=== PATIENT | male | born 1965 | race Caucasian/White ===

== ENCOUNTER 2018-11-06 16:50 | Emergency (ER) | payer MEDICAID ==
[~2018-11-06] VITALS: Ht 177.8 cm; Wt 84.1 kg
[~2018-11-06 16:50] MED LIST: ZESTRIL20 MG PO
[2018-11-06 16:55] VITALS: Ht 177.8 cm; Wt 84.1 kg
[2018-11-06] MEDS ORDERED: SEROQUEL300 MG PO (16:56)
[2018-11-06 17:28] LABS: BASOPHILS 0.1 % (0-2); EOSINOPHILS 0.7 % (0-7); HEMATOCRIT 33.7 % (42.0-54.0); HEMOGLOBIN 11.6 g/dL (13.5-17.5); LYMPHOCYTES 23.6 % (15-50); MCH 33.8 pg (26.0-34.0); MCHC 34.4 g/dL (31.0-37.0); MCV 98.3 fL (80.0-100.0); MEAN PLATELET VOLUME 9.5 fL (7.4-10.4); MONOCYTES 11.6 % (2-11); RBC 3.43 10x6/uL (4.20-6.10); RDW 12.8 % (11.5-14.5); WBC 7.4 10x3/uL (4.8-10.8)
[2018-11-06 17:37] LABS: INR 1.04 (0.85-1.17); PROTIME 13.1 SECONDS (11.6-15.0)
[2018-11-06 17:40] LABS: PLATELET COUNT 215 10x3/uL (130-400)
[2018-11-06 17:41] LABS: ALBUMIN 3.4 g/dL (3.4-5.0); ALKALINE PHOSPHATASE 66 U/L (46-116); ALT (SGPT) 38 U/L (10-68); BILIRUBIN - TOTAL 0.69 mg/dL (0.2-1.3); CALC OSMOLALITY 270 mosm/kg (275-300); CALCIUM 8.2 mg/dL (8.5-10.1); CARBON DIOXIDE 24.7 mmol/L (21.0-32.0); CHLORIDE - SERUM 99 mmol/L (98-107); CREATININE - SERUM 1.1 mg/dL (0.6-1.3); GLUCOSE 107 mg/dL (74-106); POTASSIUM - SERUM 3.3 mmol/L (3.5-5.1); PROTEIN - SERUM 7.1 g/dL (6.4-8.2); SODIUM 136 mmol/L (136-145); UREA NITROGEN 10 mg/dL (7-18); eGFR NON AFRICAN AMERICAN 74 mL/min (90-120)
[2018-11-06 17:53] LABS: CKMB 0.5 U/L (0.0-3.6); CREATINE KINASE 96 UL (21-232); MAGNESIUM - SERUM 1.6 mg/dL (1.8-2.4); THYROID STIMULATING HORMONE 0.83 uIU/mL (0.36-3.74); TROPONIN-I < 0.017 ng/mL (0.000-0.060)
[2018-11-06 19:00] VITALS: BP 118/73
[2018-11-06 19:49] LABS: UDS - AMPHET NEGATIVE QUAL (NEGATIVE); UDS - BARB NEGATIVE QUAL (NEGATIVE); UDS - BENZO NEGATIVE QUAL (NEGATIVE); UDS - COCAINE NEGATIVE QUAL (NEGATIVE); UDS - OPIATE NEGATIVE QUAL (NEGATIVE); UDS - PCP NEGATIVE QUAL (NEGATIVE); UDS - THC NEGATIVE QUAL (NEGATIVE)
[2018-11-06 20:00] LABS: APPEARANCE CLEAR (CLEAR); COLOR YELLOW (YELLOW)
[2018-11-06 20:01] LABS: BILIRUBIN NEGATIVE (NEGATIVE); GLUCOSE NEGATIVE (NEGATIVE); KETONE NEGATIVE (NEGATIVE); NITRITE NEGATIVE (NEGATIVE); PROTEIN NEGATIVE (NEGATIVE); UROBILINOGEN NORMAL (NORMAL)
== END 2018-11-06 21:05 | disposition home or self-care (01) ==
LOC: D.ER 16:50
PROVIDERS: Family Medicine
DX: F10.129 Alcohol abuse with intoxication, unspecified (principal); W18.30XA Fall on same level, unspecified, initial encounter; Y93.89 Activity, other specified; Y92.019 Unspecified place in single-family (private) house as the place of occurrence of the external cause

== ENCOUNTER 2019-01-03 10:55 | Inpatient (IN) | payer MEDICAID ==
[~2019-01-03] VITALS: Ht 177.8 cm; Wt 86.7 kg
--- NOTE | ~2019-01-03 | CN ---
PATIENT NAME:DEEPIKA RESTREPO MEDICAL RECORD: [id number] : 61 LOCATION:D. D.2107 ADMIT DATE: 01/03/19 ACCOUNT: [id number] CONSULTING PHYSICIAN: TARA OCHOA MD REFERRING PHYSICIAN: LYNNE POWER MD DATE OF CONSULTATION: 01/03/2019 DIAGNOSES: 1. Atrial fibrillation. 2. Elevated troponin. 3. Renal failure. 4. Anemia. 5. ETOH abuse. 6. Delirium tremens. 7. Hypertension. HISTORY OF PRESENT ILLNESS: This is a gentleman, who has a past history of ETOH abuse, who was in [facility] for the past week; however, he has been on a binge. He has a history from a cardiac standpoint of atrial fibrillation. His heart rates in the 120s. EKG is pending. Most likely, he is back in atrial fibrillation. He does have a history of hypertension for which he is on lisinopril. He underwent cardiac catheterization at [facility] within the past year. There were no significant blockages. He has had no chest pain or chest discomfort. His troponin is mildly elevated; however, his creatinine is 3.0. He is receiving IV fluids. PHYSICAL EXAMINATION: GENERAL APPEARANCE: Well-nourished, well-developed, appears stated age. Level of distress, comfortable. PSYCHIATRIC: Mental status, alert, normal affect. Orientation, oriented to time, place and person. EYES: Lids and conjunctiva, noninjected. No discharge, no pallor. ENT: Lips, teeth, gums, normal dentition. Oropharynx, no cyanosis, no pallor. NECK: Carotid arteries, bilateral normal upstroke, no bruits, no thrills. JUGULAR VEINS: No jugular venous pressure or distention. CERVICAL LYMPH NODES: Nontender, nonenlarged. THYROID: Not enlarged. Nontender. No nodules. LUNGS: Respiratory effort, unlabored. CHEST: Normal curvature. No thoracic deformity. No chest wall tenderness. Percussion, resonant. Auscultation, clear. No wheezes, no rales, no rhonchi. CARDIOVASCULAR: Precordial exam, nondisplaced. No heaves or pericardial thrills. Rate and rhythm, regular. Heart sounds, normal S1, normal S2. No S3, no gallop, no rub. Systolic murmur, not heard. Diastolic murmur, not heard. EXTREMITIES: No cyanosis, no edema. Peripheral pulses, full and equal in all extremities, except as noted. No bruits appreciated. ABDOMEN: Soft, nondistended. Normal aorta. No bruit. Nontender. No masses. Liver, nontender, no hepatomegaly. Spleen, nontender, no splenomegaly. MUSCULOSKELETAL: No joint tenderness. No joint swelling. No erythema. NEUROLOGICAL: Normal gait, normal strength, normal tone. SKIN: Warm and dry. OVERALL IMPRESSION: 1. Atrial fibrillation. At this time, we will start with Lopressor. This will help his DTs as well to get heart rate control. We will treat his heart rate and blood pressure with beta-blockers as tolerated. CONSULT REPORT [id number] DEEPIKA RESTREPO 2. Elevated troponin, non-Q-wave myocardial infarction. This is secondary to demand ischemia. Normal cardiac catheterization in the past year. No further workup needs to be done from the standpoint of ischemic heart disease. We will get an echocardiogram to rule out ETOH cardiomyopathy and to evaluate chamber sizes in light of the arrhythmia. TRANSINT:[id number] Voice Confirmation ID: [id number] DOCUMENT ID: [id number] TARA OCHOA MD CC: [id number] DICTATION DATE: 01/03/191939 SILVER PLATER: 01/04/19 0015 ADM IN [facility] [address] [id number]
--- NOTE | ~2019-01-03 | EC ---
PATIENT:DEEPIKA RESTREPO DATE OF SERVICE: 01/03/19 SEX: M MEDICAL RECORD: [id number] DATE OF : 61 LOCATION:D.M2 D.210 AGE OF PATIENT: 53 ADMISSION DATE: 01/03/19 REFERRING PHYSICIAN: INTERPRETING PHYSICIAN: TARA FRANCIS MD ECHOCARDIOGRAM REPORT ECHO CHARGES 4 ECHO COMPLETE Date: 01/04/19 CLINICAL DIAGNOSIS: SYNCOPE HX HTN, AFIB ECHOCARDIOGRAPHIC MEASUREMENTS (adult normal given) AC root (d.<3.7cm) 3.2 cm LV Septum d (<1.2 cm> 2.0 cm Valve Excursion 1.5 cm LV Septum (systole) 2.3 cm Left Atria (s.<4.0cm> 3.7 cm LVPW d(<1.2cm) 1.8 cm RV (d.<2.3cm) 3.4 cm LVPW (sytole) 2.2 cm LV diastole(<5.6CM) 4.2 cm MV E-F(>70mm/sec) cm LV systole 2.3 cm LVOT Diameter 1.9 cm MV exc.(>10mm) 1.6 cm Est.ejection fraction (50-75%) % DOPPLER: LVIT cm/sec A 100 cm/sec E 58.0 cm/sec LA cm/sec RVSP 28 mmHg LVOT 159 cm/sec AOP1/2T m/s Asc. Ao 218 cm/sec RVOT 118 cm/sec RA cm/sec PA 181 cm/sec AV Gradient Peak 19.03mmHg AV Mean 11.34mmHg AV Area 2.2 cm MV Gradient Peak 7.17 mmHg MV Mean 3.43 mmHg MV Area cm COMMENTS: English As A Second Language Teacher: Heaven SHELTON Patcher Wood Welder: 1 Dr. Francis TAPE# PACS Pericardial Effusion Y DATE OF SERVICE: 01/04/2019 PROCEDURE: Echocardiogram. FINDINGS: 1. Left ventricular chamber size is within normal limits. Left ventricular systolic function is normal. Overall ejection fraction estimated at 60%. 2. Left atrium, right atrium, and right ventricular chamber sizes are within normal limits. 3. Valvular structures: Aortic valve demonstrates mild calcific aortic ECHOCARDIOGRAM REPORT [id number] DEEPIKA RESTREPO stenosis, valve area calculates to greater than 2 cm squared, but there is gradient 19 mm across the valve. The remaining valvular structures have normal structure and motion. 4. Doppler interrogation reveals mild mitral regurgitation, mild tricuspid regurgitation, no other valvular insufficiency or stenosis. Pulmonary systolic pressure is estimated at 28 mmHg. 5. Trace pericardial effusion is present. This is not hemodynamically significant. No evidence of left ventricular thrombus. TRANSINT:[id number] Voice Confirmation ID: [id number] DOCUMENT ID: [id number] TARA FRANCIS MD CC: [id number] DICTATION DATE: 01/04/19 1244 TAVERN CAR ATTENDANT: 01/04/19 1414 ADM IN [place] [address] [place] [address]
[~2019-01-03 10:55] MED LIST changes: +SEROQUEL300 MG PO
[2019-01-03 11:45] LABS: APPEARANCE CLEAR (CLEAR); BILIRUBIN NEGATIVE (NEGATIVE); COLOR YELLOW (YELLOW); GLUCOSE NEGATIVE (NEGATIVE); KETONE NEGATIVE (NEGATIVE); NITRITE NEGATIVE (NEGATIVE); PROTEIN NEGATIVE (NEGATIVE); SPECIFIC GRAVITY 1.015 (1.005-1.020); UROBILINOGEN NORMAL (NORMAL)
[2019-01-03 11:50] LABS: UDS - AMPHET NEGATIVE QUAL (NEGATIVE); UDS - BARB NEGATIVE QUAL (NEGATIVE); UDS - BENZO POSITIVE QUAL (NEGATIVE); UDS - COCAINE NEGATIVE QUAL (NEGATIVE); UDS - OPIATE NEGATIVE QUAL (NEGATIVE); UDS - PCP NEGATIVE QUAL (NEGATIVE); UDS - THC NEGATIVE QUAL (NEGATIVE)
[2019-01-03 12:55] LABS: BILIRUBIN - TOTAL 0.6 mg/dL (0.2-1.3); CALCIUM 8.8 mg/dL (8.5-10.1); CARBON DIOXIDE 25.5 mmol/L (21.0-32.0); CREATININE - SERUM 3.2 mg/dL (0.6-1.3); POTASSIUM - SERUM 3.5 mmol/L (3.5-5.1); PROTEIN - SERUM 8.6 g/dL (6.4-8.2)
[2019-01-03 12:57] LABS: HEMATOCRIT 35.4 % (42.0-54.0); HEMOGLOBIN 12.1 g/dL (13.5-17.5); LYMPHOCYTES 9.5 % (15-50); MCH 31.3 pg (26.0-34.0); MCHC 34.2 g/dL (31.0-37.0); MCV 91.5 fL (80.0-100.0); MEAN PLATELET VOLUME 9.1 fL (7.4-10.4); NEUTROPHILS 86.1 % (40-80); RBC 3.87 10x6/uL (4.20-6.10); RDW 16.2 % (11.5-14.5); WBC 13.2 10x3/uL (4.8-10.8)
[2019-01-03 13:04] LABS: PLATELET COUNT 311 10x3/uL (130-400)
[2019-01-03 13:18] LABS: TROPONIN-I 0.335 ng/mL (0.000-0.060)
--- NOTE | 2019-01-03 17:54 | NUR ---
NEW PATIENT ADMIT TO FLOOR FROM ER ADMITTED TO DR POWER FOR ARF AND ELEVATED TROPONIN. BP 129/82 HR 120 T 98.9 R 18 AND O2 98% RA. IV 20G TO LEFT AC WITH BANANA BAG INFUSING AT 125ML/HR AND NS 125 ML/HR. PATIENT DENIES ANY NEEDS OR PAIN. PATIENT ORIENTED TO ROOM AND CALL LIGHT . WILL CONTINUE WITH PLAN OF CARE.
[2019-01-03 17:59] VITALS: BP 129/82; BMI 26.6
--- NOTE | 2019-01-03 18:44 | MORECARE ---
CASE MANAGEMENT DISCHARGE SUMMARY PATIENT: DEEPIKA BAR UNIT: [id number] ADM DATE: 01/03/19 AGE: 53 : 61 SEX: M ROOM/BED: D.2107 AUTHOR: JACK KEEN PHYSICIAN: REFERRING PHYSICIAN: LYNNE POWER MD DATE OF SERVICE: 01/03/19 Discharge Plan Patient Name: DEEPIKA BAR [facility] [facility] 1965 Planned Disposition: Home Anticipated Discharge Date: 01/06/19 Discharge Date: Expected LOS: 3 Initial Reviewer: [email or web address] Initial Review Date: 01/03/2019 Generated: 01/03/19 7:44 pm DCPIA - Discharge Planning Initial Assessment Updated by [email or web address]: Aurelia Olivera on 01/03/19 6:43 pm * Is the patient Alert and Oriented? Yes * PCP Dr. Power * Pharmacy [facility] on [address] * Preadmission Environment Home with Family * ADLs Independent * Equipment None * List name and contact numbers for known caregivers / representatives who currently or will assist patient after discharge: Tiburcio Bar - [facility] [phone] & [phone] * Community resources currently utilized None * Additional services required to return to the preadmission environment? No * Can the patient safely return to the preadmission environment? Yes * Has this patient been hospitalized within the prior 30 days at any hospital? No Patient Name: DEEPIKA BAR Page 53236 at 1844 All edits/amendments must be made on the electronic document DICTATION DATE: 01/03/191842 HANDICAPPED TEACHER: DENG 01/03/191842 RPT#: [id number] DC DATE: STATUS: ADM IN [facility] [address] [place] [address] END OF REPORT
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
[2019-01-03 20:00] VITALS: BP 111/55
[2019-01-03 20:16] LABS: ERYTHROCYTE SEDIMENTATION RATE 92 mm/hr (0-20)
--- NOTE | 2019-01-03 20:23 | NUR ---
RESUMING CARE. PT ALERT LAYING IN BED WATCHING TV. NO ACUTE S/S OF DISTRESS NOTED. NO C/O VOICED AT THIS TIME. BED IN LOW POSITIOM WITH CALL LIGHT IN REACH. SIDE RAILS UP X 2. WILL CONTINUE TO MONITOR PT AND [facility] PLAN OF CARE.
[2019-01-04] VITALS: BP 132/82
--- NOTE | 2019-01-04 02:48 | NUR ---
I have reviewed this patient and I concur with the Shift Assessment completed by the Licensed Practical Nurse today this shift.
[2019-01-04 04:00] VITALS: BP 150/90
[2019-01-04 05:32] LABS: BASOPHILS 0 % (0-2); EOSINOPHILS 0.3 % (0-7); HEMATOCRIT 31.3 % (42.0-54.0); HEMOGLOBIN 10.3 g/dL (13.5-17.5); IMMATURE GRANULOCYTES 0.2 % (0-5); MCH 30.8 pg (26.0-34.0); MCHC 32.9 g/dL (31.0-37.0); MEAN PLATELET VOLUME 9.7 fL (7.4-10.4); MONOCYTES 9.5 % (2-11); PLATELET COUNT 276 10x3/uL (130-400); RBC 3.34 10x6/uL (4.20-6.10); RDW 16.3 % (11.5-14.5); WBC 10.1 10x3/uL (4.8-10.8)
[2019-01-04 05:44] LABS: MCV 93.7 fL (80.0-100.0)
[2019-01-04 05:49] LABS: ANION GAP 15.4 mmol/L (8-16); POTASSIUM - SERUM 3.4 mmol/L (3.5-5.1)
[2019-01-04 05:50] LABS: CREATININE - SERUM 2.3 mg/dL (0.6-1.3)
[2019-01-04 08:50] VITALS: BP 129/77
--- NOTE | 2019-01-04 09:13 | NUR ---
RESUMING PT CARE, PT LAYING IN BED ALERT AND ORIENTED X3, RESPIRATIONS EVEN AND UNLABORED. CALL LIGHT IN REACH, WILL CONTINUE TO MONITOR AND FOLLOW PLAN OF CARE.
--- NOTE | 2019-01-04 09:22 | NUR ---
PT C/O OF PAIN AT A LEVEL 9 ON PAIN SCALE IN LEGS, ELBOWS AND FEET FROM A DX OF GOUT. I PAGED DR POWER TO SEE IF I CAN GET AN ORDER FOR PAIN MED. WILL F/U WITH ANY NEW ORDERS.
--- NOTE | 2019-01-04 10:06 | NUR ---
I have reviewed this patient and I concur with the Shift Assessment completed by the Licensed Practical Nurse today this shift.
--- NOTE | 2019-01-04 10:55 | NUR ---
URINE COLLECTED AND SENT TO THE LAB ORDERED.
[2019-01-04 11:16] LABS: APPEARANCE CLEAR (CLEAR); BILIRUBIN NEGATIVE (NEGATIVE); COLOR YELLOW (YELLOW); GLUCOSE NEGATIVE (NEGATIVE); KETONE NEGATIVE (NEGATIVE); NITRITE NEGATIVE (NEGATIVE); PROTEIN NEGATIVE (NEGATIVE); UROBILINOGEN NORMAL (NORMAL)
[2019-01-04 11:18] LABS: CREATININE - URINE 27.8 mg/dL (30-125); PRO/CRE RATIO URINE 1.1 mg/g; PROTEIN - URINE 30.6 mg/dL (0.0-11.9)
[2019-01-04 12:25] VITALS: Ht 177.8 cm; Wt 86.7 kg
[2019-01-04 14:47] VITALS: BP 124/78
--- NOTE | 2019-01-04 15:59 | NUR ---
PT IS LAYING IN BED WITH EYES CLOSED, RESPIRATIONS EVEN AND UNLABORED. CALL LIGHT IN REACH, WILL CONTINUE TO MONITOR AND FOLLOW PLAN OF CARE.
[2019-01-04 18:45] VITALS: BP 90/54
--- NOTE | 2019-01-04 19:10 | NUR ---
GREETED PATIENT AND INTRODUCED MYSELF HIS NURSE FOR THE EVENING. PATIENT IS LAYING IN BED WATCHING TV AND DENIES ANY NEEDS AT THIS TIME. CALL LIGHT IN REACH.
[2019-01-04 20:00] VITALS: BP 138/90
[2019-01-05] VITALS: BP 135/91
--- NOTE | 2019-01-05 00:01 | NUR ---
PATIENT AWAKE AND REQUESTING PRN ATIVAN FOR ANXIETY. ADMINISTERED 0.5 ML OF ATIVAN. PATIENT DENIES ANY FURTHER NEEDS AT THIS TIME. CALL LIGHT IN REACH.
--- NOTE | 2019-01-05 02:10 | NUR ---
PATIENT ASLEEP LAYING IN SUPINE POSITION. HOB AT 30 DEGREES. RESPIRATIONS EVEN. NO SIGNS OF DISTRESS. CALL LIGHT IN REACH.
[2019-01-05 05:08] VITALS: BP 135/95
--- NOTE | 2019-01-05 06:02 | NUR ---
PATIENT ASLEEP LAYING IN SUPINE POSITION. HOB AT 35 DEGREES. RESPIRATIONS EVEN. NO S/S OF DISTRESS. CALL LIGHT IN REACH.
--- NOTE | 2019-01-05 08:00 | NUR ---
RESUMING PT CARE, PT SITTING UP IN BED, ALERT AND ORIENTED X3. CALL LIGHT IN REACH, WILL CONTINUE TO MONITOR AND FOLLOW PLAN OF CARE.
[2019-01-05 08:33] LABS: BASOPHILS 0.1 % (0-2); EOSINOPHILS 2.8 % (0-7); HEMATOCRIT 31.2 % (42.0-54.0); IMMATURE GRANULOCYTES 0.1 % (0-5); LYMPHOCYTES 28.8 % (15-50); MCH 30.8 pg (26.0-34.0); MCHC 32.1 g/dL (31.0-37.0); MEAN PLATELET VOLUME 9.5 fL (7.4-10.4); MONOCYTES 12.5 % (2-11); NEUTROPHILS 55.7 % (40-80); PLATELET COUNT 252 10x3/uL (130-400); RBC 3.25 10x6/uL (4.20-6.10); RDW 15.8 % (11.5-14.5)
[2019-01-05 08:47] LABS: WBC 6.9 10x3/uL (4.8-10.8)
[2019-01-05 08:51] LABS: ALBUMIN 2.4 g/dL (3.4-5.0); BILIRUBIN - TOTAL 0.32 mg/dL (0.2-1.3); CALCIUM 8.2 mg/dL (8.5-10.1); CARBON DIOXIDE 21.4 mmol/L (21.0-32.0); CREATININE - SERUM 1.3 mg/dL (0.6-1.3); POTASSIUM - SERUM 3.4 mmol/L (3.5-5.1); PROTEIN - SERUM 6.6 g/dL (6.4-8.2)
[2019-01-05 09:04] VITALS: BP 151/97
--- NOTE | 2019-01-05 09:37 | NUR ---
I have reviewed this patient and I concur with the Shift Assessment completed by the Licensed Practical Nurse today this shift.
[2019-01-05 11:11] VITALS: BP 140/92
--- NOTE | 2019-01-05 15:33 | NUR ---
IV INFILTRATED AND REMOVED FROM LEFT AC, NEW IV STARTED TO RIGHT AC.
--- NOTE | 2019-01-05 15:55 | NUR ---
PT C/O INCREASED WEAKNESS, HE TRIED TO STAND UP BUT COULD NOT ON HIS OWN. I PAGED DR POWER, NEW ORDERS TO CONSULT PT AND ADMIT TO REHAB. ORDER NOTED.
[2019-01-05 16:42] VITALS: BP 174/87
--- NOTE | 2019-01-05 19:21 | NUR ---
RECEIVED REPORT, WILL ASSUME CARE OF PT, VISITING WITH FAMILY, DENIES ANY NEEDS AT THIS TIME, BED IS LOW, SRX2, CALL LIGHT IN REACH, WILL CONTINUE PLAN OF CARE
[2019-01-05 20:04] VITALS: BP 171/96
--- NOTE | 2019-01-05 23:37 | NUR ---
SLEEPING, BED IS LOW, SRX2, CALL LIGHT IN REACH, WILL CONTINUE PLAN OF CARE
[2019-01-06 00:36] VITALS: BP 194/103
--- NOTE | 2019-01-06 04:01 | NUR ---
I have reviewed this patient and I concur with the Shift Assessment completed by the Licensed Practical Nurse today this shift.
[2019-01-06 04:35] VITALS: BP 145/80
[2019-01-06 07:00] VITALS: BP 152/87
--- NOTE | 2019-01-06 08:00 | NUR ---
RECIEVED BEDSIDE REPORT. AM ROUNDS COMPLETED VSS, AAOX3. NO S/S OF RR DISTRESS. PT STATES HE IS WEAK. AM MEDS GIVEN. PT DENIES ANY NEEDS FOR PAIN AT THIS TIME. WILL CPOC. CL IN REACH, BED IN LOW, SR UP X2.
--- NOTE | 2019-01-06 10:31 | NUR ---
PT C/O GENERALIZED PAIN. PO NORCO GIVEN AT THIS TIME. PT IN PT'S ROOM. WILLM CTM. CL IN REACH, BED IN LOW, SR UP X2.
[2019-01-06 12:44] VITALS: BP 150/97
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
[2019-01-06 17:09] LABS: SPE - A/G RATIO 0.8 (0.7-1.7); SPE - ALBUMIN 2.8 g/dL (2.9-4.4); SPE - ALPHA-1 GLOBULIN 0.5 g/dL (0.0-0.4); SPE - ALPHA-2 GLOBULIN 1.1 g/dL (0.4-1.0); SPE - BETA GLOBULIN 0.8 g/dL (0.7-1.3); SPE - GAMMA GLOBULIN 1.3 g/dL (0.4-1.8); SPE - M-SPIKE Not Observed g/dL (Not Observed); SPE - TOTAL PROTEIN 6.5 g/dL (6.0-8.5)
[2019-01-06 17:52] VITALS: BP 156/95
--- NOTE | 2019-01-06 19:00 | NUR ---
AWAKE TALKING ON HIS PHONE. RR 18 EVEN U/L ON ROOM AIR. TELEMETRY SHOWS 102 ST. IV IN L HAND INTACT WITH BANANA BAG INFUSING AT 125ML/HR. C/O KNEE AND ELBOW JOINT PAIN LEVEL 8/10 NUMBER SCALE, STATED IS FROM GOUT. REQUESTED PAIN MED WITH MED PASS.
[2019-01-06 20:31] VITALS: BP 169/77
--- NOTE | 2019-01-06 20:35 | NUR ---
ADMIN SCHED MEDS AND NORCO 10 FOR C/O CHRONIC KNEE/ELBOW PAIN. ADMIN ATIVAN 1MG IV PER REQUEST FOR "ANXIETY". NO OTHER NEEDS VOICED.
[2019-01-07 05:05] VITALS: BP 153/74
--- NOTE | 2019-01-07 05:35 | NUR ---
ADMIN NORCO 10 MG PO PER REQUEST FOR C/O BILATERAL KNEE/ELBOW PAIN LEVEL 8/10 SCALE. TOOK URINE SAMPLE TO LAB PER ORDER.
[2019-01-07 06:00] LABS: BASOPHILS 0.2 % (0-2); EOSINOPHILS 7.5 % (0-7); HEMATOCRIT 29.8 % (42.0-54.0); HEMOGLOBIN 9.7 g/dL (13.5-17.5); IMMATURE GRANULOCYTES 0.2 % (0-5); MCH 30.4 pg (26.0-34.0); MCHC 32.6 g/dL (31.0-37.0); MEAN PLATELET VOLUME 9.4 fL (7.4-10.4); MONOCYTES 14.4 % (2-11); NEUTROPHILS 28.7 % (40-80); PLATELET COUNT 294 10x3/uL (130-400); RBC 3.19 10x6/uL (4.20-6.10); RDW 15.1 % (11.5-14.5)
[2019-01-07 06:27] LABS: MCV 93.4 fL (80.0-100.0); WBC 4.8 10x3/uL (4.8-10.8)
[2019-01-07 06:30] LABS: CALCIUM 8.5 mg/dL (8.5-10.1); CARBON DIOXIDE 25.3 mmol/L (21.0-32.0); CHLORIDE - SERUM 107 mmol/L (98-107); GLUCOSE 89 mg/dL (74-106); POTASSIUM - SERUM 3.2 mmol/L (3.5-5.1); SODIUM 142 mmol/L (136-145)
[2019-01-07 06:40] LABS: CALC OSMOLALITY 279 mosm/kg (275-300); CREATININE - SERUM 0.9 mg/dL (0.6-1.3); UREA NITROGEN 7 mg/dL (7-18)
[2019-01-07 06:41] LABS: eGFR NON AFRICAN AMERICAN > 90 mL/min (90-120)
--- NOTE | 2019-01-07 07:10 | NUR ---
REPORT RECEIVED FROM TERRITORY BUSINESS MANAGER. PATIENT LAYING IN BED ON BACK WITH EYES CLOSED AND BREATHING EVENLY. VSS. WILL CONTINUE WITH PLAN OF CARE. SR UP X 2 BED IN LOW POSITION AND CALL LIGHT IN REACH.
[2019-01-07 08:20] LABS: APPEARANCE CLEAR (CLEAR); BILIRUBIN NEGATIVE (NEGATIVE); COLOR YELLOW (YELLOW); GLUCOSE NEGATIVE (NEGATIVE); KETONE NEGATIVE (NEGATIVE); NITRITE NEGATIVE (NEGATIVE); PROTEIN NEGATIVE (NEGATIVE); UROBILINOGEN NORMAL (NORMAL)
[2019-01-07 08:23] LABS: BACTERIA FEW /hpf (NONE SEEN); EPITHELIAL CELLS 0-5 /hpf (0-5); RED CELLS - URINE 0-5 /hpf (0-5); WHITE CELLS - URINE 0-5 /hpf (0-5)
[2019-01-07 09:17] VITALS: BP 153/94
[2019-01-07 12:27] VITALS: BP 174/90
--- NOTE | 2019-01-07 14:37 | NUR ---
PATIENT RESTING COMFORTABLY IN ROOM. VSS. WILL CONTINUE TO MONITOR.
[2019-01-07 16:21] VITALS: BP 169/97
--- NOTE | 2019-01-07 16:46 | NUR ---
IV INFILLTRATED. BP 174/97. PER VERBAL ORDER GENOVEVA SANTIZO WITH DR TONO DC IV AND ADDED COZAAR 50 MG PO. PATIENT COMPLAINS OF HEADACHE. NEW ORDER RECIEVED FROM GENOVEVA SANTIZO GIVE TYLENOL 1000 MG PO . WILL CONTINUE TO MONITOR PATIENT.
--- NOTE | 2019-01-07 19:20 | NUR ---
RESUMING CARE. PT LAYING IN BED A&O BREATH SOUNDS EVEN UNLABORED ON RA , NO IV, PT IS UP WITH ASSIST NO C/O PAIN OT DISTRESS AT THIS TIME CL IN REACH WILL CONT TO MONITOR
[2019-01-07 20:00] VITALS: BP 153/93
[2019-01-08] VITALS: BP 144/93
--- NOTE | 2019-01-08 02:18 | NUR ---
I have reviewed this patient and I concur with the Shift Assessment completed by the Licensed Practical Nurse today this shift. PT IS SR 75 ON THE MONITOR
[2019-01-08 04:00] VITALS: BP 155/85
--- NOTE | 2019-01-08 07:10 | NUR ---
REPORT RECEIVED FROM NEON SIGN SERVICER. PATIENT LAYING IN BED ON BACK WITH EYES CLOSED AND BREATHING EVENLY. VSS. WILL CONTINUE WITH PLAN OF CARE. SR UP X 2 BED IN LOW POSITION AND CALL LIGHT IN REACH.
--- NOTE | 2019-01-08 07:59 | NUR ---
PATIENT COMPLAINS OF PAIN TO JOINTS. MEDICATED PER MAR WITH NORCO. WILL CONTINUE TO MONITOR. SR UP X 2 BED IN LOW POSITION AND CALL LIGHT IN REACH.
[2019-01-08] MEDS ORDERED: LIBRIUM25 MG PO (08:19)
[2019-01-08] MEDS ORDERED: ZYLOPRIM100 MG PO (08:20)
[2019-01-08] MEDS ORDERED: K-DUR20 MEQ PO (08:20)
[2019-01-08 09:23] VITALS: BP 174/104
[2019-01-08] MEDS ORDERED: COZAAR50 MG PO (10:14)
--- NOTE | 2019-01-08 11:29 | NUR ---
Rehab Note- Acute Inpatient Rehab prescreen order received. The patient has Medicaid & does not have inpatient acute rehab benefits. Thank you for this referral! Jamilah Esteban RN Clinical Liaison, [facility] Rehab
--- NOTE | 2019-01-08 12:54 | NUR ---
ORDERS RECEIVED FOR DISCHARGE. PATIENT IS STABLE AND VSS. PATIENT DENIES ANY NEEDS OR PAIN. ORAL AND WRITTEN DC INSTRUCTIONS GIVEN . PATIENT VERBALIZED UNDERSTANDING AND SIGNED WRITTEN INSTRUCTIONS . PATIENT IS DC HOME FOR SELF CARE. PATIENT REFUSES WC AND WALKED TO FRONT DOOR WITH SON TO DRIVE PATIENT HOME.
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
== END 2019-01-08 12:58 | disposition home or self-care (01) | DRG 682 ==
LOC: D.ER 10:55 → D.M2 15:12 → D.EDHOLD 15:12 → D.M2 16:27
PROVIDERS: Family Medicine; Internal Medicine Nephrology; ADMIT Legal Medicine; ATTEND Legal Medicine
DX: N17.9 Acute kidney failure, unspecified (principal); I21.4 Non-ST elevation (NSTEMI) myocardial infarction; F10.231 Alcohol dependence with withdrawal delirium; I24.8 Other forms of acute ischemic heart disease; E87.1 Hypo-osmolality and hyponatremia; F33.9 Major depressive disorder, recurrent, unspecified; R79.89 Other specified abnormal findings of blood chemistry; I10 Essential (primary) hypertension; M10.9 Gout, unspecified; W19.XXXA Unspecified fall, initial encounter; F19.90 Other psychoactive substance use, unspecified, uncomplicated; D64.9 Anemia, unspecified

== ENCOUNTER 2019-01-29 20:23 | Emergency (ER) | payer MEDICAID ==
[~2019-01-29] VITALS: Ht 177.8 cm; Wt 72.7 kg
[~2019-01-29 20:23] MED LIST changes: +COZAAR50 MG PO; +K-DUR20 MEQ PO; +LIBRIUM25 MG PO; +ZYLOPRIM100 MG PO
[2019-01-29 20:28] VITALS: BP 101/64; Ht 177.8 cm; Wt 72.7 kg
[2019-01-29] MEDS ORDERED: LISINOPRIL10 MG PO (20:30)
== END 2019-01-29 23:39 | disposition left against medical advice (07) ==
LOC: D.ER 20:23
DX: R07.9 Chest pain, unspecified (principal); R10.9 Unspecified abdominal pain; I10 Essential (primary) hypertension

== ENCOUNTER 2019-01-31 03:09 | Inpatient (IN) | payer MEDICAID ==
[2019-01-31] VITALS (7 sets, daily range): BP systolic 146–162; BP diastolic 68–94; BMI 24.4; BMI 24.3
[~2019-01-31 03:09] MED LIST changes: +LISINOPRIL10 MG PO
[2019-01-31 04:49] LABS: ALBUMIN 3.2 g/dL (3.4-5.0); ANION GAP 19.5 mmol/L (8-16); BILIRUBIN - TOTAL 0.61 mg/dL (0.2-1.3); CALCIUM 8.3 mg/dL (8.5-10.1); CARBON DIOXIDE 18.1 mmol/L (21.0-32.0); CREATININE - SERUM 2.1 mg/dL (0.6-1.3); POTASSIUM - SERUM 4.6 mmol/L (3.5-5.1); PROTEIN - SERUM 7.6 g/dL (6.4-8.2); PROTIME 12.7 SECONDS (11.6-15.0)
[2019-01-31 04:57] LABS: MAGNESIUM - SERUM 1.3 mg/dL (1.8-2.4)
[2019-01-31 05:04] LABS: BASOPHILS 0.2 % (0-2); EOSINOPHILS 1.4 % (0-7); HEMATOCRIT 39.2 % (42.0-54.0); HEMOGLOBIN 13.5 g/dL (13.5-17.5); IMMATURE GRANULOCYTES 0.2 % (0-5); LYMPHOCYTES 36.4 % (15-50); MCH 31.8 pg (26.0-34.0); MCHC 34.4 g/dL (31.0-37.0); MCV 92.5 fL (80.0-100.0); MEAN PLATELET VOLUME 9.6 fL (7.4-10.4); MONOCYTES 11.2 % (2-11); NEUTROPHILS 50.6 % (40-80); PLATELET COUNT 194 10x3/uL (130-400); RBC 4.24 10x6/uL (4.20-6.10); RDW 17.2 % (11.5-14.5); WBC 5.9 10x3/uL (4.8-10.8)
[2019-01-31 05:14] LABS: APPEARANCE CLEAR (CLEAR); BILIRUBIN NEGATIVE (NEGATIVE); COLOR YELLOW (YELLOW); GLUCOSE NEGATIVE (NEGATIVE); KETONE NEGATIVE (NEGATIVE); NITRITE NEGATIVE (NEGATIVE); PROTEIN NEGATIVE (NEGATIVE); SPECIFIC GRAVITY 1.015 (1.005-1.020); UROBILINOGEN NORMAL (NORMAL)
[2019-01-31] MEDS ORDERED: HYDROCODONE-IB1 EAC3 PO (05:26)
[2019-01-31] MEDS ORDERED: ZANAFLEX4 MG PO (05:26)
--- NOTE | 2019-01-31 06:39 | NUR ---
REPORT CALLED TO CHANDRAKANT, FLOOR NURSE. WILL ADMIT PT WHEN BHARANY RETURNS CALL. PT STABLE, CALL LIGHT WITHIN REACH, WILL CONTINUE TO MONITOR.
--- NOTE | 2019-01-31 07:05 | NUR ---
PT RECEIVED TO ROOM WITHOUT ANY COMPLAINTS AT THIS TIME. IVF INFUSING AT PRESCRIBED RATE TO LT. HAND. ENCOURAGED TO USE CALL LIGHT FOR ASSIST.
[2019-01-31 16:15] LABS: UDS - AMPHET NEGATIVE QUAL (NEGATIVE); UDS - BARB NEGATIVE QUAL (NEGATIVE); UDS - BENZO POSITIVE QUAL (NEGATIVE); UDS - COCAINE NEGATIVE QUAL (NEGATIVE); UDS - OPIATE POSITIVE QUAL (NEGATIVE); UDS - PCP NEGATIVE QUAL (NEGATIVE); UDS - THC NEGATIVE QUAL (NEGATIVE)
--- NOTE | 2019-01-31 16:28 | NUR ---
PT REFUSES TO WEAR SCD WITH RISK VERSUS BENEFITS EXPLAINED.
[2019-02-01] VITALS: BP 139/84
--- NOTE | 2019-02-01 03:26 | NUR ---
ACCIDENTALLY PULLED IV OUT, REFUSED TO HAVE A NEW ON PLACED RIGHT NOW
[2019-02-01 04:00] VITALS: BP 101/61
--- NOTE | 2019-02-01 04:00 | NUR ---
I have reviewed this patient and I concur with the Shift Assessment completed by the Licensed Practical Nurse today this shift.
[2019-02-01 05:47] LABS: BASOPHILS 0 % (0-2); EOSINOPHILS 2.1 % (0-7); HEMATOCRIT 34.9 % (42.0-54.0); HEMOGLOBIN 11.4 g/dL (13.5-17.5); MCH 31.1 pg (26.0-34.0); MCHC 32.7 g/dL (31.0-37.0); MEAN PLATELET VOLUME 9.5 fL (7.4-10.4); MONOCYTES 13.2 % (2-11); NEUTROPHILS 51.7 % (40-80); PLATELET COUNT 166 10x3/uL (130-400); RBC 3.66 10x6/uL (4.20-6.10); RDW 17.8 % (11.5-14.5); WBC 5.3 10x3/uL (4.8-10.8)
[2019-02-01 05:55] LABS: MCV 95.4 fL (80.0-100.0)
[2019-02-01 06:27] LABS: ALBUMIN 2.6 g/dL (3.4-5.0); ANION GAP 14.6 mmol/L (8-16); BILIRUBIN - TOTAL 1.07 mg/dL (0.2-1.3); CARBON DIOXIDE 22.6 mmol/L (21.0-32.0); POTASSIUM - SERUM 4.2 mmol/L (3.5-5.1); PROTEIN - SERUM 6.1 g/dL (6.4-8.2)
[2019-02-01 06:29] LABS: CREATININE - SERUM 1.3 mg/dL (0.6-1.3)
[2019-02-01 08:45] VITALS: BP 91/57
--- NOTE | 2019-02-01 09:52 | NUR ---
ALERT AND ORIENTED AND DENIES ANY PAIN OR DISCOMFORT AT THIS TIME. ABD. SOFT WITH BS NOTED. LUNGS CTA. PT REFUSES TO REPLACE IV AT THIS TIME. STATEDIS STILL FOGGY FROM SEROQUEL LAST NIGHT.ENCOURAGED TO USE CALL LIGHT FOR ASSIST
[2019-02-01 12:58] VITALS: BP 107/68
[2019-02-01 17:42] VITALS: BP 110/71
[2019-02-01 19:53] VITALS: BP 120/77
[2019-02-02] VITALS: BP 130/85
--- NOTE | 2019-02-02 03:13 | NUR ---
I have reviewed this patient and I concur with the Shift Assessment completed by the Licensed Practical Nurse today this shift.
[2019-02-02 04:00] VITALS: BP 129/84
[2019-02-02 06:36] LABS: BASOPHILS 0 % (0-2); EOSINOPHILS 5.4 % (0-7); HEMATOCRIT 34.2 % (42.0-54.0); HEMOGLOBIN 11.3 g/dL (13.5-17.5); LYMPHOCYTES 37.8 % (15-50); MCH 31.4 pg (26.0-34.0); MEAN PLATELET VOLUME 9.6 fL (7.4-10.4); MONOCYTES 15.8 % (2-11); PLATELET COUNT 149 10x3/uL (130-400); RDW 17.6 % (11.5-14.5)
[2019-02-02 06:37] LABS: WBC 3.4 10x3/uL (4.8-10.8)
[2019-02-02 06:56] LABS: ALBUMIN 2.5 g/dL (3.4-5.0); ALKALINE PHOSPHATASE 64 U/L (46-116); ALT (SGPT) 85 U/L (10-68); BILIRUBIN - TOTAL 0.65 mg/dL (0.2-1.3); CALC OSMOLALITY 273 mosm/kg (275-300); CALCIUM 8.2 mg/dL (8.5-10.1); CARBON DIOXIDE 24.3 mmol/L (21.0-32.0); CHLORIDE - SERUM 104 mmol/L (98-107); GLUCOSE 96 mg/dL (74-106); MAGNESIUM - SERUM 1.7 mg/dL (1.8-2.4); SODIUM 137 mmol/L (136-145); UREA NITROGEN 12 mg/dL (7-18); eGFR NON AFRICAN AMERICAN 82 mL/min (90-120)
--- NOTE | 2019-02-02 09:00 | NUR ---
ALERT AND ORIENTED WITH IVF INFUSING LT. FOREARM AT PRESCRIBED RATE. UP AD SEAMUS. WITH IMPROVED APPETITE. LUNGS CTA AND BS NOTED X 4. DENIES ANY PAIN OR DISCOMFORT AT THIS TIME. ENCOURAGED TO USE CALL LIGHT FOR ASSIST.
[2019-02-02 13:44] VITALS: BP 146/85
[2019-02-02 17:47] VITALS: BP 152/90
--- NOTE | 2019-02-02 19:20 | NUR ---
RECEIVED REPORT, ASSUMED CARE, A&O, DENIES NEEDS, CALL LIGHT IN REACH, BED LOWEST POSITION, WILL CONTINUE TO MONITOR
[2019-02-02 20:00] VITALS: BP 171/100
[2019-02-03] VITALS: BP 151/88
[2019-02-03 03:00] VITALS: BP 135/89
--- NOTE | 2019-02-03 05:03 | NUR ---
I have reviewed this patient and I concur with the Shift Assessment completed by the Licensed Practical Nurse today this shift.
[2019-02-03 05:14] LABS: BASOPHILS 0 % (0-2); EOSINOPHILS 5.7 % (0-7); HEMATOCRIT 35.1 % (42.0-54.0); HEMOGLOBIN 11.8 g/dL (13.5-17.5); LYMPHOCYTES 46.2 % (15-50); MCH 31.7 pg (26.0-34.0); MCHC 33.6 g/dL (31.0-37.0); MCV 94.4 fL (80.0-100.0); MEAN PLATELET VOLUME 9.6 fL (7.4-10.4); MONOCYTES 15.9 % (2-11); NEUTROPHILS 32.2 % (40-80); PLATELET COUNT 160 10x3/uL (130-400); RBC 3.72 10x6/uL (4.20-6.10); RDW 17.2 % (11.5-14.5); WBC 3.5 10x3/uL (4.8-10.8)
[2019-02-03 05:43] LABS: CALC OSMOLALITY 271 mosm/kg (275-300); CALCIUM 8.6 mg/dL (8.5-10.1); CARBON DIOXIDE 25.5 mmol/L (21.0-32.0); CHLORIDE - SERUM 105 mmol/L (98-107); GLUCOSE 96 mg/dL (74-106); SODIUM 137 mmol/L (136-145); eGFR NON AFRICAN AMERICAN 82 mL/min (90-120)
[2019-02-03 05:44] LABS: UREA NITROGEN 8 mg/dL (7-18)
[2019-02-03 08:15] VITALS: BP 149/93
--- NOTE | 2019-02-03 09:01 | NUR ---
MORNING ASSESSMENT COMPLETE. SEE ASSESSMENT FLOWSHEET FOR FURTHER DETAILS. PT LYING IN BED AAO X4 TO PERSON, PLACE, TIME, AND SITUATION. DENIES NEEDS AT THIS ITME. CL IN REACH. SIDE RAILS UP X3 FOR PT SAEFTY. BED IN LOWEST POSITION.
[2019-02-03 13:55] VITALS: BP 146/88
--- NOTE | 2019-02-03 16:24 | NUR ---
L HAND PIV INFILTRATED. RESITED TO L FA. FLUSHES WELL. PT TOLERATED WELL.
--- NOTE | 2019-02-03 17:21 | MORECARE ---
CASE MANAGEMENT DISCHARGE SUMMARY PATIENT: DEEPIKA BAR UNIT: [id number] ADM DATE: 01/31/19 AGE: 53 : 61 SEX: M ROOM/BED: D.2231 AUTHOR: JACK KEEN PHYSICIAN: REFERRING PHYSICIAN: LYNNE POWER MD DATE OF SERVICE: 02/03/19 Discharge Plan Patient Name: DEEPIKA BAR [facility] [facility] 1965 Planned Disposition: Other Type of Facility Anticipated Discharge Date: Discharge Date: Expected LOS: Initial Reviewer: [email or web address] Initial Review Date: 02/03/2019 Generated: 02/03/19 6:21 pm DCPIA - Discharge Planning Initial Assessment Updated by [email or web address]: Gabriela Sabillon on 02/03/19 5:12 pm * Is the patient Alert and Oriented? Yes * PCP Dr. Power * Preadmission Environment Home Alone * ADLs Independent * Equipment None * List name and contact numbers for known caregivers / representatives who currently or will assist patient after discharge: Tiburcio Bar [facility] [phone] * Verbal permission to speak to the caregivers and representatives has been obtained from the patient. Yes * Community resources currently utilized None * Additional services required to return to the preadmission environment? No * Can the patient safely return to the preadmission environment? Yes * Has this patient been hospitalized within the prior 30 days at any hospital? Yes Patient Name: DEEPIKA BAR Page 82676 at 1721 All edits/amendments must be made on the electronic document DICTATION DATE: 02/03/191719 MILD DISABILITIES TEACHER: DENG 02/03/191719 RPT#: [id number] DC DATE: STATUS: ADM IN [facility] [address] [place] [address] END OF REPORT
[2019-02-03 17:27] VITALS: BP 154/97
--- NOTE | 2019-02-03 17:31 | MORECARE ---
CASE MANAGEMENT DISCHARGE SUMMARY PATIENT: DEEPIKA BAR UNIT: [id number] ADM DATE: 01/31/19 AGE: 53 : 61 SEX: M ROOM/BED: D.2231 AUTHOR: LEONILADOC PHYSICIAN: REFERRING PHYSICIAN: LYNNE POWER MD DATE OF SERVICE: 02/03/19 Discharge Plan Patient Name: DEEPIKA BAR Facility: [facility]:[place] : 1965 Planned Disposition: Other Type of Facility Anticipated Discharge Date: Discharge Date: Expected LOS: Initial Reviewer: [email or web address] Initial Review Date: 02/03/2019 Generated: 02/03/19 6:31 pm Comments DCP- Discharge Planning Updated by [email or web address]: Gabriela Sabillon on 02/03/19 4:[address] Patient Name: DEEPIKA BAR Admission Status: ER Accout number: [id number] Admission Date: 01-31-2019 : 1965 Admission Diagnosis:UNSPECIFIED PROTEIN-CALORIE MALNUTRITION Attending: LYNNE POWER Current LOS: 3 Anticipated DC Date: Planned Disposition: Other Type of Facility Primary Insurance: MEDICAID [place] Discharge Planning Comments: Met with patient, he is talking very softly and I can barely hear him. He states that he lives alone "mostly". States his father will take him home on discharge. He states that he feels like he need to go to [facility] and stay there. I will speak with his doctor tomorrow on a possible transfer. He has Medicaid and I am unsure of their insurance requirement there. He does not have any skilled benefits and declines home health needs. I provided him with a list of local ETOH abuse counseling shelters. CM will continue to follow and assist with discharge planning/needs. Subassemblies Wirer: Gabriela Sabillon DCPIA - Discharge Planning Initial Assessment Updated by [email or web address]: Gabriela Sabillon on 02/03/19 5:12 pm * Is the patient Alert and Oriented? Yes * PCP Dr. Power * Preadmission Environment Home Alone * ADLs Independent * Equipment None * List name and contact numbers for known caregivers / representatives who currently or will assist patient after discharge: Tiburcio Bar - father - [phone] * Verbal permission to speak to the caregivers and representatives has been obtained from the patient. Yes * Community resources currently utilized None * Additional services required to return to the preadmission environment? No * Can the patient safely return to the preadmission environment? Yes * Has this patient been hospitalized within the prior 30 days at any hospital? Yes Last DP export: 02/03/19 4:21 p Patient Name: DEEPIKA BAR Page 78439 at 1731 All edits/amendments must be made on the electronic document DICTATION DATE: 02/03/191729 ASSOCIATE AGENT INSURANCE SALES: DENG 02/03/191729 RPT#: [id number] DC DATE: STATUS: ADM IN [facility] [address] [place] [address] END OF REPORT
[2019-02-03 20:00] VITALS: BP 164/99
--- NOTE | 2019-02-03 21:51 | NUR ---
PT ALERT X 4. BREATH SOUNDS CLEAR BILAT. IV TO RIGHT FOREARM, PATENT, DRESSING CDI. PT REPORTING PAIN OF 5/10 TO RIGHT FLANK, WILL MONITOR. BED LOW, CALL LIGHT IN REACH. NO OTHER NEEDS AT THIS TIME.
[2019-02-04] VITALS: BP 175/97
[2019-02-04 05:23] LABS: BASOPHILS 0.3 % (0-2); EOSINOPHILS 4.8 % (0-7); HEMATOCRIT 35.8 % (42.0-54.0); HEMOGLOBIN 11.8 g/dL (13.5-17.5); LYMPHOCYTES 44.3 % (15-50); MCH 31.1 pg (26.0-34.0); MCV 94.5 fL (80.0-100.0); MEAN PLATELET VOLUME 9.3 fL (7.4-10.4); MONOCYTES 18.5 % (2-11); NEUTROPHILS 32.1 % (40-80); PLATELET COUNT 180 10x3/uL (130-400); RBC 3.79 10x6/uL (4.20-6.10); RDW 17.3 % (11.5-14.5); WBC 3.1 10x3/uL (4.8-10.8)
[2019-02-04 05:30] VITALS: BP 166/86
[2019-02-04 06:13] LABS: ALBUMIN 2.6 g/dL (3.4-5.0); ALKALINE PHOSPHATASE 63 U/L (46-116); CALC OSMOLALITY 279 mosm/kg (275-300); CALCIUM 8.3 mg/dL (8.5-10.1); CARBON DIOXIDE 27.8 mmol/L (21.0-32.0); CHLORIDE - SERUM 108 mmol/L (98-107); CREATININE - SERUM 0.9 mg/dL (0.6-1.3); GLUCOSE 96 mg/dL (74-106); MAGNESIUM - SERUM 1.9 mg/dL (1.8-2.4); POTASSIUM - SERUM 3.9 mmol/L (3.5-5.1); SODIUM 141 mmol/L (136-145); UREA NITROGEN 9 mg/dL (7-18); eGFR NON AFRICAN AMERICAN > 90 mL/min (90-120)
[2019-02-04 06:16] LABS: ALT (SGPT) 177 U/L (10-68)
[2019-02-04 09:58] VITALS: BP 171/101
--- NOTE | 2019-02-04 10:08 | MORECARE ---
CASE MANAGEMENT DISCHARGE SUMMARY PATIENT: DEEPIKA BAR UNIT: [id number] ADM DATE: 01/31/19 AGE: 53 : 61 SEX: M ROOM/BED: D.2231 AUTHOR: LEONILADOC PHYSICIAN: REFERRING PHYSICIAN: LYNNE POWER MD DATE OF SERVICE: 02/04/19 Discharge Plan Patient Name: DEEPIKA BAR [facility] [facility] 1965 Planned Disposition: Other Type of Facility Anticipated Discharge Date: Discharge Date: Expected LOS: Initial Reviewer: [email or web address] Initial Review Date: 02/03/2019 Generated: 02/04/19 11:08 am Comments DCP- Discharge Planning Updated by [email or web address]: Gabriela Sabillon on 02/04/19 9:[address] Casarez states she would like to see if [facility] rehab will accept patient's insurance. I faxed a face sheet to [phone]. DCP- Discharge Planning Updated by [id number]: Gabriela Sabillon on 02/03/19 4:[address] Patient Name: DEEPIKA BAR Admission Status: ER Accout number: [id number] Admission Date: 01-31-2019 : 1965 Admission Diagnosis:UNSPECIFIED PROTEIN-CALORIE MALNUTRITION Attending: LYNNE POWER Current LOS: 3 Anticipated DC Date: Planned Disposition: Other Type of Facility Primary Insurance: MEDICAID [place] Discharge Planning Comments: Met with patient, he is talking very softly and I can barely hear him. He states that he lives alone "mostly". States his father will take him home on discharge. He states that he feels like he need to go to [facility] and stay there. I will speak with his doctor tomorrow on a possible transfer. He has Medicaid and I am unsure of their insurance requirement there. He does not have any skilled benefits and declines home health needs. I provided him with a list of local ETOH abuse counseling shelters. CM will continue to follow and assist with discharge planning/needs. Human Resources Trainee: Gabriela Sabillon DCPIA - Discharge Planning Initial Assessment Updated by [email or web address]: Gabriela Sabillon on 02/03/19 5:12 pm * Is the patient Alert and Oriented? Yes * PCP Dr. Power * Preadmission Environment Home Alone * ADLs Independent * Equipment None * List name and contact numbers for known caregivers / representatives who currently or will assist patient after discharge: Tiburcio Bar - father - [phone] * Verbal permission to speak to the caregivers and representatives has been obtained from the patient. Yes * Community resources currently utilized None * Additional services required to return to the preadmission environment? No * Can the patient safely return to the preadmission environment? Yes * Has this patient been hospitalized within the prior 30 days at any hospital? Yes External Providers External Provider: OTHER-OTHER Next Contact Date: Service Request Date: Service Type: Resolution: Reviewer: Comments: Last DP export: 02/03/19 4:31 p Patient Name: DEEPIKA BAR Page 11352 at 1008 All edits/amendments must be made on the electronic document DICTATION DATE: 02/04/19 1008 GRAPHICS INTERN: DENG 02/04/19 1008 RPT#: [id number] DC DATE: STATUS: ADM IN [facility] [address] [place] [address] END OF REPORT
[2019-02-04 11:53] VITALS: BP 168/87
--- NOTE | 2019-02-04 12:42 | MORECARE ---
CASE MANAGEMENT DISCHARGE SUMMARY PATIENT: DEEPIKA BAR UNIT: [id number] ADM DATE: 01/31/19 AGE: 53 : 61 SEX: M ROOM/BED: D.2231 AUTHOR: LEONILADOC PHYSICIAN: REFERRING PHYSICIAN: LYNNE POWER MD DATE OF SERVICE: 02/04/19 Discharge Plan Patient Name: DEEPIKA BAR Facility: [facility]:[place] : 1965 Planned Disposition: Other Type of Facility Anticipated Discharge Date: Discharge Date: Expected LOS: Initial Reviewer: [id number] Initial Review Date: 02/03/2019 Generated: 02/04/19 1:42 pm Comments DCP- Discharge Planning Updated by [email or web address]: Gabriela Sabillon on 02/04/19 11:[address] Received a call from Jess at [facility] that they are at capacity and unable to accept patient at this time. I notified Calvin Brashears and orders received to order a psych consult and to call the transfer team for transfer to a psychiatric/drug and alcohol inpatient rehab. I called the transfer center and spoke to Viji and clinical faxed. Viji was informed that his first choice was [facility] and they are full and second choice was [facility]. CM will continue to follow and assist with discharge planning/needs. DCP- Discharge Planning Updated by [email or web address]: Gabriela Sabillon on 02/04/19 9:[address] Casarez states she would like to see if [facility] rehab will accept patient's insurance. I faxed a face sheet to [phone]. DCP- Discharge Planning Updated by [email or web address]: Gabriela Sabillon on 02/03/19 4:[address] Patient Name: DEEPIKA BAR Admission Status: ER Accout number: [id number] Admission Date: 01-31-2019 : 1965 Admission Diagnosis:UNSPECIFIED PROTEIN-CALORIE MALNUTRITION Attending: LYNNE POWER Current LOS: 3 Anticipated DC Date: Planned Disposition: Other Type of Facility Primary Insurance: MEDICAID [place] Discharge Planning Comments: Met with patient, he is talking very softly and I can barely hear him. He states that he lives alone "mostly". States his father will take him home on discharge. He states that he feels like he need to go to [facility] and stay there. I will speak with his doctor tomorrow on a possible transfer. He has Medicaid and I am unsure of their insurance requirement there. He does not have any skilled benefits and declines home health needs. I provided him with a list of local ETOH abuse counseling shelters. CM will continue to follow and assist with discharge planning/needs. Delinquent Account Clerk: Gabriela Sabillon DCPIA - Discharge Planning Initial Assessment Updated by [email or web address]: Gabriela Sabillon on 02/03/19 5:12 pm * Is the patient Alert and Oriented? Yes * PCP Dr. Power * Preadmission Environment Home Alone * ADLs Independent * Equipment None * List name and contact numbers for known caregivers / representatives who currently or will assist patient after discharge: Tiburcio Bar - father - [phone] * Verbal permission to speak to the caregivers and representatives has been obtained from the patient. Yes * Community resources currently utilized None * Additional services required to return to the preadmission environment? No * Can the patient safely return to the preadmission environment? Yes * Has this patient been hospitalized within the prior 30 days at any hospital? Yes Last DP export: 02/04/19 9:08 a Patient Name: DEEPIKA BAR Page 74464 at 1242 All edits/amendments must be made on the electronic document DICTATION DATE: 02/04/19 124 FORESTRY ENGINEER: DENG 02/04/19 1242 RPT#: [id number] ND DATE: STATUS: ADM IN [facility] [address] [place] [address] END OF REPORT
--- NOTE | 2019-02-04 12:46 | NUR ---
Nutrition Follow Up: NPO now Previously on regular diet with ~50% average po intake since admit Intake is improving. Pt reports he is able to eat now and he is eating better Pt has no nutritional requests at this time Offered Ensure once diet advances and pt denied for now RD following
[2019-02-04 16:57] VITALS: BP 162/97
--- NOTE | 2019-02-04 18:45 | NUR ---
PATIENT IN B ED WITHIV INTACT. N O COMPLAINTS OR SIGNS OF DISTRESS. CALL LIGHT WITHIN REACH.
--- NOTE | 2019-02-04 20:10 | NUR ---
PT RESTING IN BED. ALERT AND ORIENTED. NO SIGNS OF DISTRESS. BREATHING EVEN AND UNLABORED. PT STATES NO PROBLEMS AT THIS TIME. IV SITE LT FA DRESSING CLEAN DRY AND INTACT. NO SIGNS OF INFECTION. BOWEL SOUNDS ACTIVE. NO LOWER LEG SWELLING PRESENT. WILL CONTINUE PLAN OF CARE. CALL LIGHT IN REACH. BED LOWERED AND LOCKED.
[2019-02-04 21:22] VITALS: BP 161/94
[2019-02-05 00:19] VITALS: BP 154/80
--- NOTE | 2019-02-05 03:02 | NUR ---
I have reviewed this patient and I concur with the Shift Assessment completed by the Licensed Practical Nurse today this shift.
[2019-02-05 05:05] VITALS: BP 158/84
--- NOTE | 2019-02-05 05:37 | NUR ---
SPOKE WITH OUR TRANSFER SERVICE ABOUT PLACEMENT FOR THIS PT AT [facility]. THEY HAVE ACCEPTED THIS PT AND WILL BE FAXING OVER PAPERWORK. WILL FALLOW UP.
[2019-02-05 06:05] LABS: HEMATOCRIT 35.7 % (42.0-54.0); HEMOGLOBIN 12.3 g/dL (13.5-17.5); MCH 32.4 pg (26.0-34.0); MCHC 34.5 g/dL (31.0-37.0); MCV 93.9 fL (80.0-100.0); MEAN PLATELET VOLUME 9.4 fL (7.4-10.4); PLATELET COUNT 201 10x3/uL (130-400); RDW 17.5 % (11.5-14.5)
[2019-02-05 06:22] LABS: ALBUMIN 2.6 g/dL (3.4-5.0); ALKALINE PHOSPHATASE 62 U/L (46-116); BILIRUBIN - TOTAL 0.26 mg/dL (0.2-1.3); CALCIUM 8.4 mg/dL (8.5-10.1); CARBON DIOXIDE 28.5 mmol/L (21.0-32.0); CHLORIDE - SERUM 105 mmol/L (98-107); CREATININE - SERUM 0.8 mg/dL (0.6-1.3); GLUCOSE 104 mg/dL (74-106); POTASSIUM - SERUM 3.5 mmol/L (3.5-5.1); SODIUM 140 mmol/L (136-145); eGFR NON AFRICAN AMERICAN > 90 mL/min (90-120)
[2019-02-05 06:27] LABS: ALT (SGPT) 233 U/L (10-68); CALC OSMOLALITY 275 mosm/kg (275-300); UREA NITROGEN 5 mg/dL (7-18)
[2019-02-05 06:37] LABS: WBC 3.9 10x3/uL (4.8-10.8)
[2019-02-05 07:20] LABS: HEPATITIS C ANTIBODY <0.1 S/CO RAT (0.0-0.9)
[2019-02-05 07:45] LABS: EOSINOPHILS 8 % (0-7); LYMPHOCYTES 49 % (15-50); MONOCYTES 21 % (2-11); NEUTROPHILS 22 % (40-80); PLATELET ESTIMATE NORMAL
[2019-02-05 10:16] VITALS: BP 167/106
[2019-02-05 12:48] VITALS: BP 165/105
--- NOTE | 2019-02-05 13:32 | MORECARE ---
CASE MANAGEMENT DISCHARGE SUMMARY PATIENT: DEEPIKA BAR UNIT: [id number] ADM DATE: 01/31/19 AGE: 53 : 61 SEX: M ROOM/BED: D.2231 AUTHOR: LEONILA,DOC PHYSICIAN: REFERRING PHYSICIAN: LYNNE POWER MD DATE OF SERVICE: 02/05/19 Discharge Plan Patient Name: DEEPIKA BAR [facility] [facility] 1965 Planned Disposition: Other Type of Facility Anticipated Discharge Date: Discharge Date: Expected LOS: Initial Reviewer: [email or web address] Initial Review Date: 02/03/2019 Generated: 02/05/19 2:32 pm Comments DCP- Discharge Planning Updated by [email or web address]: Gabriela Sabillon on 02/05/19 12:[address] Received a call from the transfer center this morning that they have reached out to 15 facilities and have had 8 facilities decline. I was informed that [facility] in [place] would accept, but the transfer team said No, that they declined due to medical necessity. I informed Calvin this. I received a call just now from Fariha at [facility] that she needs his clinical faxed to her to present to medical facilities section director for admission. I faxed clinical to [phone] as requested. Phone number [phone]. CM will continue to follow and assist with discharge planning/needs. DCP- Discharge Planning Updated by [email or web address]: Gabriela Sabillon on 02/04/19 11:[address] Received a call from Jess at [facility] that they are at capacity and unable to accept patient at this time. I notified Calvin Mueller and orders received to order a psych consult and to call the transfer team for transfer to a psychiatric/drug and alcohol inpatient rehab. I called the transfer center and spoke to Viji and clinical faxed. Viji was informed that his first choice was [facility] and they are full and second choice was [facility]. CM will continue to follow and assist with discharge planning/needs. DCP- Discharge Planning Updated by [email or web address]: Gabriela Sabillon on 02/04/19 9:[address] Casarez states she would like to see if [facility] rehab will accept patient's insurance. I faxed a face sheet to [phone]. DCP- Discharge Planning Updated by [email or web address]: Gabriela Sabillon on 02/03/19 4:[address] Patient Name: DEEPIKA BAR Admission Status: ER Accout number: [id number] Admission Date: 01-31-2019 : 1965 Admission Diagnosis:UNSPECIFIED PROTEIN-CALORIE MALNUTRITION Attending: LYNNE POWER Current LOS: 3 Anticipated DC Date: Planned Disposition: Other Type of Facility Primary Insurance: MEDICAID [place] Discharge Planning Comments: Met with patient, he is talking very softly and I can barely hear him. He states that he lives alone "mostly". States his father will take him home on discharge. He states that he feels like he need to go to [facility] and stay there. I will speak with his doctor tomorrow on a possible transfer. He has Medicaid and I am unsure of their insurance requirement there. He does not have any skilled benefits and declines home health needs. I provided him with a list of local ETOH abuse counseling shelters. CM will continue to follow and assist with discharge planning/needs. Pediatrics Hospitalist: Gabriela Wenchary DCPIA - Discharge Planning Initial Assessment Updated by [email or web address]: Gabriela Sabillon on 02/03/19 5:12 pm * Is the patient Alert and Oriented? Yes * PCP Dr. Power * Preadmission Environment Home Alone * ADLs Independent * Equipment None * List name and contact numbers for known caregivers / representatives who currently or will assist patient after discharge: Tiburcio Bar - father - [phone] * Verbal permission to speak to the caregivers and representatives has been obtained from the patient. Yes * Community resources currently utilized None * Additional services required to return to the preadmission environment? No * Can the patient safely return to the preadmission environment? Yes * Has this patient been hospitalized within the prior 30 days at any hospital? Yes Last DP export: 02/04/19 11:42 a Patient Name: DEEPIKA BAR Page 67041 at 1332 All edits/amendments must be made on the electronic document DICTATION DATE: 02/05/19 1331 BODY BUILDER: DENG 02/05/19 1331 RPT#: [id number] DC DATE: STATUS: ADM IN [facility] [address] [place] [address] END OF REPORT
--- NOTE | 2019-02-05 14:08 | MORECARE ---
CASE MANAGEMENT DISCHARGE SUMMARY PATIENT: DEEPIKA BAR UNIT: [id number] ADM DATE: 01/31/19 AGE: 53 : 61 SEX: M ROOM/BED: D.2231 AUTHOR: LEONILA,DOC PHYSICIAN: REFERRING PHYSICIAN: LYNNE POWER MD DATE OF SERVICE: 02/05/19 Discharge Plan Patient Name: DEEPIKA BAR [facility] [facility] 1965 Planned Disposition: Other Type of Facility Anticipated Discharge Date: Discharge Date: Expected LOS: Initial Reviewer: [email or web address] Initial Review Date: 02/03/2019 Generated: 02/05/19 3:07 pm Comments DCP- Discharge Planning Updated by [email or web address]: Gabriela Sabillon on 02/05/19 1:[address] Received a call from Fariha at [facility], states he is not appropriate for their unit. She states they feel he may benefit more from an alcohol abuse center that they do not provide. I did inform the patient that we have not been able to find a facility to accept him at this time and they he may want to call [facility] or somewhere local that he can admit himself to get help with ETOH abuse. CM will continue to follow and assist with discharge planning/needs. DCP- Discharge Planning Updated by [id number]: Gabriela Sabillon on 02/05/19 12:[address] Received a call from the transfer center this morning that they have reached out to 15 facilities and have had 8 facilities decline. I was informed that [facility] in [place] would accept, but the transfer team said No, that they declined due to medical necessity. I informed Calvin this. I received a call just now from Fariha at [facility] that she needs his clinical faxed to her to present to front office medical assistant for admission. I faxed clinical to [phone] as requested. Phone number [phone]. CM will continue to follow and assist with discharge planning/needs. DCP- Discharge Planning Updated by [email or web address]: Gabriela Sabillon on 02/04/19 11:[address] Received a call from Jess at [facility] that they are at capacity and unable to accept patient at this time. I notified Calvin Brashears and orders received to order a psych consult and to call the transfer team for transfer to a psychiatric/drug and alcohol inpatient rehab. I called the transfer center and spoke to Viji and clinical faxed. Viji was informed that his first choice was [place] and they are full and second choice was [place]. CM will continue to follow and assist with discharge planning/needs. DCP- Discharge Planning Updated by [email or web address]: Gabriela Sabillon on 02/04/19 9:[address] Casarez states she would like to see if [place] [facility] will accept patient's insurance. I faxed a face sheet to [phone]. DCP- Discharge Planning Updated by [email or web address]: Gabriela Sabillon on 02/03/19 4:[address] Patient Name: DEEPIKA BAR Admission Status: ER Accout number: [id number] Admission Date: 01-31-2019 : 1965 Admission Diagnosis:UNSPECIFIED PROTEIN-CALORIE MALNUTRITION Attending: LYNNE POWER Current LOS: 3 Anticipated DC Date: Planned Disposition: Other Type of Facility Primary Insurance: MEDICAID [place] Discharge Planning Comments: Met with patient, he is talking very softly and I can barely hear him. He states that he lives alone "mostly". States his father will take him home on discharge. He states that he feels like he need to go to [facility] and stay there. I will speak with his doctor tomorrow on a possible transfer. He has Medicaid and I am unsure of their insurance requirement there. He does not have any skilled benefits and declines home health needs. I provided him with a list of local ETOH abuse counseling shelters. CM will continue to follow and assist with discharge planning/needs. Director Manufacturing Engineering: Gabriela Sabillon DCPIA - Discharge Planning Initial Assessment Updated by [id number]: Gabriela Sabillon on 02/03/19 5:12 pm * Is the patient Alert and Oriented? Yes * PCP Dr. Power * Preadmission Environment Home Alone * ADLs Independent * Equipment None * List name and contact numbers for known caregivers / representatives who currently or will assist patient after discharge: Tiburcio Bar - father - [phone] * Verbal permission to speak to the caregivers and representatives has been obtained from the patient. Yes * Community resources currently utilized None * Additional services required to return to the preadmission environment? No * Can the patient safely return to the preadmission environment? Yes * Has this patient been hospitalized within the prior 30 days at any hospital? Yes Last DP export: 02/05/19 12:32 pm Patient Name: DEEPIKA BAR Page 13327 at 1408 All edits/amendments must be made on the electronic document DICTATION DATE: 02/05/191406 LASER PRINTING OPERATOR: DM 02/05/191406 RPT#: [id number] DC DATE: STATUS: ADM IN [facility] [address] [place] [address] END OF REPORT
--- NOTE | 2019-02-05 14:09 | NUR ---
PT RESTING IN BED. NO SIGNS OF DISTRESS. IV TO LEFT FORARM PATENT NO REDNESS OR TENDERNESS. BP THIS AM WAS 165/107 MED GIVEN DIDNT COME DOWN SPOKE WITH JACOBO GOT ORDER FOR IV BP MED. GIVEN BY MARK LANIER. BP NORMAL NOW. DENIES ANY OTHER NEED AT THIS TIME. CALL LIGHT IN REACH. BED LOW POSITION. NO FAMILY AT BEDSIDE.
--- NOTE | 2019-02-05 14:34 | NUR ---
LYING IN BED,WTHOUT DISTRESS.CALL LIGHTIN REACH
[2019-02-05 15:46] VITALS: BP 171/103
--- NOTE | 2019-02-05 19:15 | NUR ---
REC'D IN BED WATCHING TV WITH NO C/O NOTED OR VOICED. RESP EVEN AND UNLABORED WITH NO DISTRESS. CAN VOICE NEEDS AND WANTS. DENIES ANY PAIN OR DISCOMFORT AT THIS TIME. ASSESSMENT COMPLETED. C/L IN REACH AT BEDSIDE.
[2019-02-05 22:12] VITALS: BP 194/94
--- NOTE | 2019-02-06 03:41 | NUR ---
I have reviewed this patient and I concur with the Shift Assessment completed by the Licensed Practical Nurse today this shift.
[2019-02-06 04:47] LABS: BASOPHILS 0.2 % (0-2); EOSINOPHILS 3.1 % (0-7); HEMATOCRIT 36.6 % (42.0-54.0); HEMOGLOBIN 12.4 g/dL (13.5-17.5); LYMPHOCYTES 50.8 % (15-50); MCH 32.1 pg (26.0-34.0); MCHC 33.9 g/dL (31.0-37.0); MCV 94.8 fL (80.0-100.0); MEAN PLATELET VOLUME 9.5 fL (7.4-10.4); MONOCYTES 14.9 % (2-11); PLATELET COUNT 207 10x3/uL (130-400); RBC 3.86 10x6/uL (4.20-6.10); RDW 17.8 % (11.5-14.5); WBC 4.6 10x3/uL (4.8-10.8)
[2019-02-06 05:03] LABS: ALBUMIN 2.5 g/dL (3.4-5.0); ALKALINE PHOSPHATASE 58 U/L (46-116); ALT (SGPT) 277 U/L (10-68); BILIRUBIN - TOTAL 0.14 mg/dL (0.2-1.3); CALC OSMOLALITY 276 mosm/kg (275-300); CALCIUM 8.5 mg/dL (8.5-10.1); CARBON DIOXIDE 28.4 mmol/L (21.0-32.0); CHLORIDE - SERUM 106 mmol/L (98-107); CREATININE - SERUM 0.9 mg/dL (0.6-1.3); GLUCOSE 107 mg/dL (74-106); POTASSIUM - SERUM 3.7 mmol/L (3.5-5.1); PROTEIN - SERUM 6.1 g/dL (6.4-8.2); SODIUM 140 mmol/L (136-145); eGFR NON AFRICAN AMERICAN > 90 mL/min (90-120)
[2019-02-06 05:05] LABS: MAGNESIUM - SERUM 1.3 mg/dL (1.8-2.4); UREA NITROGEN 7 mg/dL (7-18)
[2019-02-06 05:12] VITALS: BP 136/91
[2019-02-06 08:35] VITALS: BP 163/100
--- NOTE | 2019-02-06 10:46 | NUR ---
MAG REPLACED PER NEW ORDER. NO COMPLAINTS. NO NEEDS AT THIS TIME. CL IN REACH. WCTM
[2019-02-06 12:11] VITALS: BP 160/89
--- NOTE | 2019-02-06 15:31 | CN ---
PATIENT NAME:DEEPIKA RESTREPO MEDICAL RECORD: [id number] : 61 LOCATION:D.MS [place] ADMIT DATE: 01/31/19 ACCOUNT: [id number] CONSULTING PHYSICIAN: NIKHIL DELGADO MD REFERRING PHYSICIAN: LYNNE POWER MD DATE OF CONSULTATION: 02/05/2019 IDENTIFYING DATA: The patient is 53 years old and he is admitted to the hospital secondary to complaints of low back pain and dysuria. He has a history of heavy alcoholism and has been drinking heavily. He is currently receiving DT prophylaxis. The patient endorses numerous neurovegetative depressive symptoms, but denies that he would seek to harm himself or others. He is denying drug use, but freely admits to his alcohol abuse that has been going on for a long time. He denies psychotic symptoms. MENTAL STATUS EXAMINATION: The patient is awake, alert, and oriented to person, place, time and situation. His mood is depressed. His affect is constricted. Thought processes are circumstantial. Memory, concentration, and abstraction abilities are mildly impaired. He denies that he would seek to harm himself or others as well as overt psychotic symptoms. PAST PSYCHIATRIC HISTORY: Significant for numerous inpatient residential treatment program, attendance for alcohol with failure at all of those. He has been to outpatient programs and has not done well with those either. He has been seen on an outpatient basis in the past and tells me that he has been diagnosed with bipolar disorder and treated by a local psychiatrist and he found that helpful. He does describe mood instability consistent with a bipolar disorder. ASSESSMENT: 1. Alcohol abuse. 2. Probable bipolar disorder. PLAN: I am going to start the patient on a dose of Effexor for antidepressant effect. I am also going to start him on lithium, which will need to be titrated upward to a therapeutic dose of approximately 0.8 mEq. This will have to be done on an outpatient basis. In addition to that, I see he is taking Seroquel. I do not agree with that long-term and would recommend that be tapered by 50 mg every week or two until it is discontinued. He does need outpatient mental health followup. He has seen a local psychiatrist Dr. Rodriguez, but there was a falling out that he told me about in some detail in long and short of the situation as he cannot go back there. I would recommend Dr. Vidhi North or someone at [facility], the agency that is now known is [facility]. In addition to this, some outpatient one-on-one substance abuse counseling with a therapist who is knowledgeable about substance abuse would likely be helpful since he has not done well in residential programs, does not want to go back to residential programs and also has not done well in Alcoholics Anonymous and does not want to return to Alcoholics Anonymous. He is willing to go to a residential program that would be designed for professional people, but I do not know one that would be available and if there is I doubt they would take [place] Medicaid, so that does not appear to be a very practical option for him. In addition to this, I think the patient's prognosis is exceedingly poor if he does not quit drinking. Although not acutely suicidal, I think he is at high risk. I have offered him inpatient mental health treatment and he has declined. He certainly does not meet criteria for CONSULT REPORT [id number] DEEPIKA RESTREPO involuntary treatment at this time. He feels that his primary core problem is depression and mood instability and that if he could get that under control, he would not drink. I must say that I do not think that is the case. I think the primary problem is the alcohol and I have explained to him that no medication or therapy is going to help unless he stops drinking. He may well be medicating in underlying mental health condition, but again nothing that I can do for him pharmacologically is going to help unless he stops drinking. He says he will try. Again, he is rejecting residential treatment. He is rejecting outpatient AA and is rejecting inpatient mental health treatment. I think it is reasonable to start him on a low dose of an antidepressant and lithium and have him follow up with an outpatient psychiatrist who will make necessary adjustments. TRANSINT:[id number] Voice Confirmation ID: [id number] DOCUMENT ID: [id number] NIKHIL DELGADO MD at 1531 CC: [id number] DICTATION DATE: 02/05/19 170 B[address] GLUER: 02/05/19 2200 ADM IN [place] [id number] [place] [address]
[2019-02-06 16:08] VITALS: BP 168/102
[2019-02-06 21:34] VITALS: BP 149/84
--- NOTE | 2019-02-07 02:49 | NUR ---
I have reviewed this patient and I concur with the Shift Assessment completed by the Licensed Practical Nurse today this shift.
[2019-02-07 05:27] VITALS: BP 139/86
[2019-02-07 06:02] LABS: ALBUMIN 2.7 g/dL (3.4-5.0); BILIRUBIN - DIRECT 0.11 mg/dL (0.00-0.30); BILIRUBIN - INDIRECT 0.17 mg/dL (0.00-1.00); BILIRUBIN - TOTAL 0.28 mg/dL (0.2-1.3); PROTEIN - SERUM 6.5 g/dL (6.4-8.2)
--- NOTE | 2019-02-07 07:50 | NUR ---
AAOX4. ON ROOM AIR, IV TO LEFT FOREARM, PATENT, SALINE LOCKED, DRESSING ADHERED TO SKIN, DENIES ANY CURRENT NEEDS OR DISCOMFORTS, BED LOWERED AND LOCKED, CALL LIGHT WITHIN REACH. CPOC
--- NOTE | 2019-02-07 07:59 | MORECARE ---
CASE MANAGEMENT DISCHARGE SUMMARY PATIENT: DEEPIKA BAR UNIT: [id number] ADM DATE: 01/31/19 AGE: 53 : 61 SEX: M ROOM/BED: D.2231 AUTHOR: JACK KEEN PHYSICIAN: REFERRING PHYSICIAN: LYNNE POWER MD DATE OF SERVICE: 02/07/19 Discharge Plan Patient Name: DEEPIKA BAR [facility] [facility] 1965 Planned Disposition: Other Type of Facility Anticipated Discharge Date: Discharge Date: Expected LOS: Initial Reviewer: [email or web address] Initial Review Date: 02/03/2019 Generated: 02/07/19 8:59 am Comments DCP- Discharge Planning Updated by [id number]: Gabriela Sabillon on 02/07/19 6:[address] Late entry: Received a call yesterday from easy admit transfer team that a doc to [facility] was done for [facility] and the patient refused inpatient psychiatric admission per the doctor. [facility] is discontinuing the search for inpatient psychiatric admission at this time. CM will continue to follow and assist with discharge planning/needs. DCP- Discharge Planning Updated by [id number]: Gabriela Sabillon on 02/05/19 1:[address] Received a call from Fariha at [facility], states he is not appropriate for their unit. She states they feel he may benefit more from an alcohol abuse center that they do not provide. I did inform the patient that we have not been able to find a facility to accept him at this time and they he may want to call [facility] or somewhere local that he can admit himself to get help with ETOH abuse. CM will continue to follow and assist with discharge planning/needs. DCP- Discharge Planning Updated by [id number]: Gabriela Sabillon on 02/05/19 12:[address] Received a call from the transfer center this morning that they have reached out to 15 facilities and have had 8 facilities decline. I was informed that [facility] in [place] would accept, but the transfer team said No, that they declined due to medical necessity. I informed Calvin this. I received a call just now from Fariha at [facility] that she needs his clinical faxed to her to present to medical center manager for admission. I faxed clinical to [phone] as requested. Phone number [phone]. CM will continue to follow and assist with discharge planning/needs. DCP- Discharge Planning Updated by [id number]: Gabriela Sabillon on 02/04/19 11:[address] Received a call from Jess at [facility] that they are at capacity and unable to accept patient at this time. I notified Calvinlorenza Gamezrs and orders received to order a psych consult and to call the transfer team for transfer to a psychiatric/drug and alcohol inpatient rehab. I called the transfer center and spoke to Viji and clinical faxed. Viji was informed that his first choice was [place] and they are full and second choice was [place]. CM will continue to follow and assist with discharge planning/needs. DCP- Discharge Planning Updated by [id number]: Gabriela Sabillon on 02/04/19 9:[address] Casarez states she would like to see if [facility] rehab will accept patient's insurance. I faxed a face sheet to [phone]. DCP- Discharge Planning Updated by [id number]: Gabriela Sabillon on 02/03/19 4:[address] Patient Name: DEEPIKA BAR Admission Status: ER Accout number: [id number] Admission Date: 01-31-2019 : 1965 Admission Diagnosis:UNSPECIFIED PROTEIN-CALORIE MALNUTRITION Attending: LYNNE POWER Current LOS: 3 Anticipated DC Date: Planned Disposition: Other Type of Facility Primary Insurance: MEDICAID [place] Discharge Planning Comments: Met with patient, he is talking very softly and I can barely hear him. He states that he lives alone "mostly". States his father will take him home on discharge. He states that he feels like he need to go to [facility] and stay there. I will speak with his doctor tomorrow on a possible transfer. He has Medicaid and I am unsure of their insurance requirement there. He does not have any skilled benefits and declines home health needs. I provided him with a list of local ETOH abuse counseling shelters. CM will continue to follow and assist with discharge planning/needs. Senior Sales Director: Gabriela Sabillon DCPIA - Discharge Planning Initial Assessment Updated by [email or web address]: Gabriela Sabillon on 02/03/19 5:12 pm * Is the patient Alert and Oriented? Yes * PCP Dr. Power * Preadmission Environment Home Alone * ADLs Independent * Equipment None * List name and contact numbers for known caregivers / representatives who currently or will assist patient after discharge: Tiburcio Bar - father - [phone] * Verbal permission to speak to the caregivers and representatives has been obtained from the patient. Yes * Community resources currently utilized None * Additional services required to return to the preadmission environment? No * Can the patient safely return to the preadmission environment? Yes * Has this patient been hospitalized within the prior 30 days at any hospital? Yes Last DP export: 02/05/19 1:07 pm Patient Name: DEEPIKA BAR Page 38368 at 0759 All edits/amendments must be made on the electronic document DICTATION DATE: 02/07/19757 NURSING HOME DIRECTOR: DENG 02/07/19757 RPT#: [id number] DC DATE: STATUS: ADM IN [facility] [address] [place] [address] END OF REPORT
[2019-02-07 08:17] VITALS: BP 149/97
[2019-02-07 12:18] VITALS: BP 149/95
--- NOTE | 2019-02-07 13:51 | NUR ---
AAOX4. ON ROOM AIR, IV TO LEFT FOREARM, PATENT, INFUSING D51/2NS AT 75ML. DENIES ANY CURRENT NEEDS OR DISCOMFORTS, BED LOWERED AND LOCKED, CALL LIGHT WITHIN REACH. CPOC
--- NOTE | 2019-02-07 16:40 | NUR ---
I have reviewed this patient and I concur with the Shift Assessment completed by the Licensed Practical Nurse today this shift.
[2019-02-07 16:45] VITALS: BP 159/98
--- NOTE | 2019-02-07 19:30 | NUR ---
RECEIVED REPORT, ASSUMED CARE, DENIES NEEDS, A&O, CALL LIGHT IN REACH, BED LOWEST POSITION, WATCHING TV, NO S/S OF DISTRESS NOTED, WILL CONTINUE POC
[2019-02-07 19:35] VITALS: BP 164/85
--- NOTE | 2019-02-08 01:18 | NUR ---
I have reviewed this patient and I concur with the Shift Assessment completed by the Licensed Practical Nurse today this shift.
[2019-02-08 05:45] VITALS: BP 127/83
[2019-02-08 06:00] LABS: BASOPHILS 0.4 % (0-2); EOSINOPHILS 2.3 % (0-7); HEMATOCRIT 37.4 % (42.0-54.0); HEMOGLOBIN 12.4 g/dL (13.5-17.5); LYMPHOCYTES 47.3 % (15-50); MCH 31.6 pg (26.0-34.0); MCHC 33.2 g/dL (31.0-37.0); MCV 95.2 fL (80.0-100.0); MEAN PLATELET VOLUME 9.2 fL (7.4-10.4); MONOCYTES 13.4 % (2-11); NEUTROPHILS 36.6 % (40-80); PLATELET COUNT 229 10x3/uL (130-400); RBC 3.93 10x6/uL (4.20-6.10); WBC 5.5 10x3/uL (4.8-10.8)
[2019-02-08 06:33] LABS: ALBUMIN 2.8 g/dL (3.4-5.0); ALKALINE PHOSPHATASE 58 U/L (46-116); ALT (SGPT) 286 U/L (10-68); BILIRUBIN - TOTAL 0.24 mg/dL (0.2-1.3); CALC OSMOLALITY 270 mosm/kg (275-300); CALCIUM 8.5 mg/dL (8.5-10.1); CARBON DIOXIDE 29.9 mmol/L (21.0-32.0); CHLORIDE - SERUM 104 mmol/L (98-107); CREATININE - SERUM 0.9 mg/dL (0.6-1.3); GLUCOSE 79 mg/dL (74-106); MAGNESIUM - SERUM 1.6 mg/dL (1.8-2.4); POTASSIUM - SERUM 3.5 mmol/L (3.5-5.1); PROTEIN - SERUM 6.2 g/dL (6.4-8.2); SODIUM 137 mmol/L (136-145); UREA NITROGEN 8 mg/dL (7-18); eGFR NON AFRICAN AMERICAN > 90 mL/min (90-120)
--- NOTE | 2019-02-08 08:06 | NUR ---
AAOX4, ON ROOM AIR, SITTING UP RIGHT, CONSUMING BREAKFAST, IV TO LEFT FOREARM, PATENT, SALINE LOCKED, DENIES ANY NEEDS OR DISCOMFORTS, BED LOWERED AND LOCKED, CALL LIGHT WITHIN REACH. CPOC
[2019-02-08 09:10] VITALS: BP 154/92
[2019-02-08] MEDS ORDERED: NORVASC5 MG PO (09:48)
[2019-02-08] MEDS ORDERED: LISINOPRIL10 MG PO (09:49)
[2019-02-08] MEDS ORDERED: LITHIUM CARBON150 MG PO (09:50)
[2019-02-08] MEDS ORDERED: EFFEXOR50 MG PO (09:50)
[2019-02-08] MEDS ORDERED: SEROQUEL100 MG PO (09:50)
[2019-02-08] MEDS ORDERED: MAG-OX 400 MG400 MG PO (09:51)
[2019-02-08] MEDS ORDERED: LIBRIUM5 MG PO (09:51)
--- NOTE | 2019-02-08 11:33 | NUR ---
DISCHARGE INSTRUCTIONS GIVEN. VERBALIZES UNDERSTANDING. IV DISCONTINUED TO LEFT FOREARM, CATHETER TIP INTACT, DENIES ANY CURRENT QUESTIONS OR NEEDS. WAITING ON RIDE.
[2019-02-09 19:06] LABS: MITOCHONDRIAL ANTIBODY <20.0 Units (0.0-20.0); SMOOTH MUSCLE ABS (ACTIN) 19 Units (0-19)
[2019-02-11 07:19] LABS: ANA REFLEX - DIRECT Negative (Negative)
--- NOTE | 2019-02-14 12:39 | MORECARE ---
CASE MANAGEMENT DISCHARGE SUMMARY PATIENT: DEEPIKA BAR UNIT: [id number] ADM DATE: 01/31/19 AGE: 53 : 61 SEX: M ROOM/BED: D.2231 AUTHOR: JACK KEEN PHYSICIAN: REFERRING PHYSICIAN: LYNNE POWER MD DATE OF SERVICE: 02/14/19 Discharge Plan Patient Name: DEEPIKA BAR [facility] [facility] 1965 Planned Disposition: Other Type of Facility Anticipated Discharge Date: Discharge Date: 02/08/2019 Expected LOS: 0 Initial Reviewer: [email or web address] Initial Review Date: 02/03/2019 Generated: 02/14/19 1:39 pm Comments DCP- Discharge Planning Updated by [id number]: Gabriela Sabillon on 02/07/19 6:[address] Late entry: Received a call yesterday from easy admit transfer team that a doc to [facility] was done for [facility] and the patient refused inpatient psychiatric admission per the doctor. [facility] is discontinuing the search for inpatient psychiatric admission at this time. CM will continue to follow and assist with discharge planning/needs. DCP- Discharge Planning Updated by [email or web address]: Gabriela Sabillon on 02/05/19 1:[address] Received a call from Fariha at [facility], states he is not appropriate for their unit. She states they feel he may benefit more from an alcohol abuse center that they do not provide. I did inform the patient that we have not been able to find a facility to accept him at this time and they he may want to call [facility] or somewhere local that he can admit himself to get help with ETOH abuse. CM will continue to follow and assist with discharge planning/needs. DCP- Discharge Planning Updated by [email or web address]: Gabriela Sabillon on 02/05/19 12:[address] Received a call from the transfer center this morning that they have reached out to 15 facilities and have had 8 facilities decline. I was informed that [facility] in [place] would accept, but the transfer team said No, that they declined due to medical necessity. I informed Calvin this. I received a call just now from Fariha at [facility] that she needs his clinical faxed to her to present to medical care evaluation specialist for admission. I faxed clinical to [phone] as requested. Phone number [phone]. CM will continue to follow and assist with discharge planning/needs. DCP- Discharge Planning Updated by [id number]: Gabriela Ridge on 02/04/19 11:[address] Received a call from Jess at [facility] that they are at capacity and unable to accept patient at this time. I notified Calvin Brashears and orders received to order a psych consult and to call the transfer team for transfer to a psychiatric/drug and alcohol inpatient rehab. I called the transfer center and spoke to Viji and clinical faxed. Viji was informed that his first choice was [place] and they are full and second choice was [place]. CM will continue to follow and assist with discharge planning/needs. DCP- Discharge Planning Updated by [id number]: Gabriela Sabillon on 02/04/19 9:[address] Casarez states she would like to see if [facility] rehab will accept patient's insurance. I faxed a face sheet to [phone]. DCP- Discharge Planning Updated by [id number]: Gabriela Ridge on 02/03/19 4:[address] Patient Name: DEEPIKA BAR Admission Status: ER Accout number: [id number] Admission Date: 01-31-2019 : 1965 Admission Diagnosis:UNSPECIFIED PROTEIN-CALORIE MALNUTRITION Attending: LYNNE POWER Current LOS: 3 Anticipated DC Date: Planned Disposition: Other Type of Facility Primary Insurance: MEDICAID [place] Discharge Planning Comments: Met with patient, he is talking very softly and I can barely hear him. He states that he lives alone "mostly". States his father will take him home on discharge. He states that he feels like he need to go to [facility] and stay there. I will speak with his doctor tomorrow on a possible transfer. He has Medicaid and I am unsure of their insurance requirement there. He does not have any skilled benefits and declines home health needs. I provided him with a list of local ETOH abuse counseling shelters. CM will continue to follow and assist with discharge planning/needs. Second Cook And Baker: Gabriela Sabillon DCPIA - Discharge Planning Initial Assessment Updated by [email or web address]: Gabriela Sabillon on 02/03/19 5:12 pm * Is the patient Alert and Oriented? Yes * PCP Dr. Power * Preadmission Environment Home Alone * ADLs Independent * Equipment None * List name and contact numbers for known caregivers / representatives who currently or will assist patient after discharge: Tiburcio Bar [facility] - [phone] * Verbal permission to speak to the caregivers and representatives has been obtained from the patient. Yes * Community resources currently utilized None * Additional services required to return to the preadmission environment? No * Can the patient safely return to the preadmission environment? Yes * Has this patient been hospitalized within the prior 30 days at any hospital? Yes Last DP export: 02/07/19 6:59 am Patient Name: DEEPIKA BAR Page 92531 at 1239 All edits/amendments must be made on the electronic document DICTATION DATE: 02/14/19 1239 BI LEAD: DENG 02/14/19 1239 RPT#: [id number] CA DATE:02/08/19 STATUS: DIS IN [facility] [address] [place] [address] END OF REPORT
== END 2019-02-08 12:16 | disposition home or self-care (01) | DRG 897 ==
LOC: D.ER 03:09 → D.MS 06:07
PROVIDERS: Emergency Medicine; Internal Medicine Gastroenterology; ADMIT Legal Medicine; ATTEND Legal Medicine
DX: F10.239 Alcohol dependence with withdrawal, unspecified (principal); N17.9 Acute kidney failure, unspecified; E87.1 Hypo-osmolality and hyponatremia; F33.8 Other recurrent depressive disorders; E44.0 Moderate protein-calorie malnutrition; I12.9 Hypertensive chronic kidney disease with stage 1 through stage 4 chronic kidney disease, or unspecified chronic kidney disease; N18.3 Chronic kidney disease, stage 3 (moderate); E83.42 Hypomagnesemia; S39.012A Strain of muscle, fascia and tendon of lower back, initial encounter; K70.10 Alcoholic hepatitis without ascites; Z68.24 Body mass index [BMI] 24.0-24.9, adult